=== PATIENT | male | born 1960 | race Caucasian/White ===

== ENCOUNTER 2017-07-06 07:29 | Inpatient (IN) | payer BC ==
[2017-07-04 12:15] VITALS: BMI 39.5
--- NOTE | 2017-07-06 08:43 | HP ---
HISTORY OF PRESENT ILLNESS Patient is a 57 y/o male with a past medical history of DM, cholelithasis, hyperlipidemia, hypertension, RAMYA (bipap at night), and ostearthritis. Patient presents for an elective right hip replacement with Dr Santos, 07/06/17. PCP: Amelie Recent travel:none Family History:non contributory to this admissin Social History: resides at home with Smoking: none Alcohol:social Drugs: none REVIEW OF SYSTEMS CONSTITUTIONAL: Absent: fever, chills, diaphoresis, generalized weakness, malaise, loss of appetite, weight change HEENT: Absent: rhinorrhea, nasal congestion, throat pain, throat swelling, difficulty swallowing, mouth swelling, ear pain, eye pain, visual changes CARDIOVASCULAR: Absent: chest pain, syncope, palpitations, irregular heart rate, lightheadedness , peripheral edema RESPIRATORY: Absent: cough, shortness of breath, dyspnea with exertion, orthopnea, wheezing, stridor, hemoptysis GASTROINTESTINAL: Absent: abdominal pain, abdominal distension, nausea, vomiting, diarrhea, constipation, melena, hematochezia GENITOURINARY: Absent: dysuria, frequency, urgency, hesitancy, hematuria, flank pain, genital pain MUSCULOSKELETAL: present: right hip pain Absent: myalgia, arthralgia, joint swelling, back pain, neck pain SKIN: Absent: rash, itching, pallor HEMATOLOGIC/IMMUNOLOGIC: Absent: easy bleeding, easy bruising, lymphadenopathy, frequent infections ENDOCRINE: Absent: unexplained weight gain, unexplained weight loss, heat intolerance, cold intolerance NEUROLOGIC: Absent: headache, focal weakness or paresthesias, dizziness, unsteady gait, seizure, mental status changes, bladder or bowel incontinence PSYCHIATRIC: Absent: anxiety, depression, suicidal or homicidal ideation, hallucinations. PHYSICAL EXAMINATION: GENERAL: Awake, alert, and fully oriented, in no acute distress. HEAD: Normal with no signs of trauma. EYES: Pupils equal, round and reactive to light, extraocular movements intact, sclera anicteric, conjunctiva clear. No lid lag. EARS, NOSE, THROAT: Ears normal, nares patent, oropharynx clear without exudates. Moist mucous membranes. NECK: Normal range of motion, supple without lymphadenopathy, JVD, or masses. LUNGS: Breath sounds equal, clear to auscultation bilaterally. No wheezes, and no crackles. No accessory muscle use. HEART: Regular rate and rhythm, normal S1 and S2 without murmur, rub or gallop. ABDOMEN: Soft, nontender, not distended, normoactive bowel sounds, no guarding, no rebound, no masses. No hepatomegaly or splenomegaly. MUSCULOSKELETAL: Normal range of motion at all joints. No bony deformities or tenderness. No CVA tenderness. UPPER EXTREMITIES: 2+ pulses, warm, well-perfused. No cyanosis. No clubbing. No peripheral edema. LOWER EXTREMITIES: 2+ pulses, warm, well-perfused. No calf tenderness. No peripheral edema. pain upon abduction and adduction of the right hip. NEUROLOGICAL: Cranial nerves II-XII intact. Normal speech. Normal gait. PSYCHIATRIC: Cooperative. Good eye contact. Appropriate mood and affect. SKIN: Warm, dry, normal turgor, no rashes or lesions noted, normal capillary refill. CBC,CMP POC Glucometer 101 UNITS (80-120) 07/06/17 08:19 ASSESSMENT/PLAN: F/E/N -npo pending or ppx - hold ac pending OR, mechanical AC only dispo: pt requires inpatient admission Problem List - Problem (1) Osteoarthritis of right hip Assessment/Plan: - pending OR today for elective right total hip replacement, Dr Santos Code(s): M16.11 - UNILATERAL PRIMARY OSTEOARTHRITIS, RIGHT HIP Qualifiers: Osteoarthritis type: primary Qualified Code(s): M16.11 - Unilateral primary osteoarthritis, right hip (2) Hypertension Assessment/Plan: -at goal, continue lisiniprol, strict b/p monitoring, caution hctz, strict monitoirng of creatine post operatively - blood pressure q4h Code(s): I10 - ESSENTIAL (PRIMARY) HYPERTENSION Qualifiers: Hypertension type: essential hypertension Qualified Code(s): I10 - Essential (primary) hypertension (3) Hyperlipidemia Assessment/Plan: - continue statin Code(s): E78.5 - HYPERLIPIDEMIA, UNSPECIFIED (4) Diabetes Assessment/Plan: - continue metfomrin and glimipride, strict monitoring of creatine Code(s): E11.9 - TYPE 2 DIABETES MELLITUS WITHOUT COMPLICATIONS Qualifiers: Diabetes mellitus type: type 2 Visit type - Case Type Case Type: Scheduled Admission - Emergency Emergency Visit: No - New patient This patient is new to me today: Yes Date on this admission: 07/06/17 - Critical Care Critical Care patient: No
[2017-07-06] MEDS ORDERED: EPINEPHrine/PF 1 MG/1 ML (1:1,000) AMPULE ONE (10:26)
[2017-07-06] MEDS ORDERED: LIDOCAINE 1% P/F 10 MG/ML VIAL ONE (10:26)
[2017-07-06] MEDS ORDERED: DESFLURANE GAS 240 ML BOTTLE IH ONE (10:26)
[2017-07-06] MEDS ORDERED: BUPIVACAINE HCL/PF 0.5% (5MG/ML) 10 ML VIAL ONE (10:26)
[2017-07-06] MEDS ORDERED: DEXAMETHASONE SOD PHOSPHATE/PF 10 MG/ML SDV ONE (10:26)
[2017-07-06] MEDS ORDERED: ROPIVACAINE HCL 0.5% 30ML VIAL ONE (10:26)
[2017-07-06] MEDS ORDERED: ONDANSETRON 4 MG/2 ML VIAL ONE (10:32)
[2017-07-06] MEDS ORDERED: ceFAZolin SODIUM 1 GM VIAL ONE (10:32)
[2017-07-06] MEDS ORDERED: ePHEDrine SULFATE 50 MG/1 ML AMPULE ONE (10:32)
[2017-07-06] MEDS ORDERED: LIDOCAINE HCL/PF 2% SDV 5ML VIAL ONE (10:32)
[2017-07-06] MEDS ORDERED: PHENYLEPHRINE HCL 10 MG/1 ML SINGLE DOSE VIAL ONE (10:32)
[2017-07-06] MEDS ORDERED: SUCCINYLCHOLINE CHLORIDE 200 MG/10 ML VIAL ONE (10:33)
[2017-07-06] MEDS ORDERED: PROPOFOL 20 ML ONE ×6 (10:33)
[2017-07-06] MEDS ORDERED: MIDAZOLAM HCL 2 MG/2 ML SINGLE DOSE VIAL ONE ×2 (10:33)
[2017-07-06] MEDS ORDERED: TRANEXAMIC ACID 1000 MG/10 ML VIAL ONE ×3 (10:36→14:48)
[2017-07-06] MEDS ORDERED: MAG HYDROX/AL HYDROX/SIMETH 30 ML UNIT-DOSE CUP PO PRN (14:32)
[2017-07-06] MEDS ORDERED: ONDANSETRON 4 MG/2 ML VIAL IVPUSH PRN ×2 (14:32→15:23)
--- NOTE | 2017-07-06 14:42 | OP ---
Operative Note - Note: Operative Date: 07/06/17 Pre-Operative Diagnosis: OA Right Hip Operation: Right Cementless THR [place] Findings: OA hip Implants: Securfit 127degrees Size7. [id number] +4 Ceramic. Cup 56mm Tritanium Cup. 28mm liner Surgeon: Jesus Santos Loans Officer: Arturo Santos Anesthesiologist/TREE WRAPPER: Rell Roche Anesthesia: Spinal, Epidural Estimated Blood Loss (mls): 300 Drains & Tubes with Location: Hemovac X 2 Operative Report Dictated: Yes
[2017-07-06] MEDS ORDERED: LACTATED RINGERS SOLUTION 1,000 ML IV SCH ×2 (14:45→15:30)
[2017-07-06] MEDS ORDERED: PROMETHAZINE HCL 25 MG/1 ML VIAL IVPUSH PRN (15:23)
[2017-07-06] MEDS ORDERED: oxyCODONE HCL 5 MG TABLET PO PRN (15:35)
[2017-07-06] MEDS ORDERED: ACETAMINOPHEN 1000 MG/100 ML VIAL (NON FORMULARY) IVPB ONE (15:35)
[2017-07-06] MEDS ORDERED: metFORMIN HCL 500 MG TABLET (FP) PO SCH (16:30)
[2017-07-06] MEDS: oxyCODONE HCL 5 MG TABLET PO PRN ×3 (17:21→23:25)
--- NOTE | 2017-07-06 19:04 | PN ---
Progress Note (short form) - Note Progress Note: 57M s/p R RICHARD POD #0. -Pain control. -DVT PPx: ASA, MOLLY's, SCD's. -Incentive spirometry. -PT/OT/Rehab, OOB. -WBAT RLE. -Care per medical hospitalist team. -f/u drain output: 1 x deep & 1 x superficial hemovac. -Will follow. Jesus Santos MD (Orthopaedic Surgery).
[2017-07-06] MEDS: CLINDAMYCIN 900 MG PREMIX IVPB 900 MG/50 ML BAG IVPB SCH (19:32)
[2017-07-06] MEDS: ASPIRIN 325 MG TABLET PO SCH (21:32)
[2017-07-06] MEDS: ACETAMINOPHEN 325 MG TABLET (FP) PO SCH (21:32)
[2017-07-06] MEDS: SENNOSIDES/DOCUSATE COMBO (SENNA PLUS) TABLET (UD) PO SCH (21:33)
[2017-07-06] MEDS ORDERED: ENOXAPARIN NA (PORCINE) 30 MG/0.3 ML DISP.SYRIN SQ SCH (22:00)
[2017-07-07] MEDS ORDERED: VANCOMYCIN 1,000 MG in DEXTROSE 5%-WATER - 250 ML IVPB ONE (01:00)
[2017-07-07] MEDS: CLINDAMYCIN 900 MG PREMIX IVPB 900 MG/50 ML BAG IVPB SCH ×3 (01:13→18:45)
[2017-07-07] MEDS: oxyCODONE HCL 5 MG TABLET PO PRN ×4 (02:58→16:10)
[2017-07-07] MEDS: ACETAMINOPHEN 325 MG TABLET (FP) PO SCH ×4 (03:37→21:28)
[2017-07-07] MEDS: GLIMEPIRIDE 2 MG TABLET (FP) PO SCH (06:13)
[2017-07-07 07:57] LABS: ANION GAP 5 (8-16); BLOOD UREA NITROGEN 14 mg/dl (7-18); CALCIUM 8.1 mg/dl (8.4-10.2); CHLORIDE 99 mmol/L (98-107); CO2 27 mmol/L (22-28); CREATININE 0.9 mg/dl (0.6-1.3); GLUCOSE,RANDOM 143 mg/dl (74-106); POTASSIUM 3.5 mmol/L (3.5-5.1); SODIUM 131 mmol/L (136-145)
[2017-07-07 08:04] LABS: HEMATOCRIT 35.7 % (35.4-49); HEMOGLOBIN 11.6 GM/dl (11.7-16.9); MCH 30.4 pg (25.7-33.7); MCHC 32.6 g/dl (32.0-35.9); MEAN CELL VOLUME 93.2 fl (80-96); MEAN PLT VOLUME 7.4 fl (7.5-11.1); PLATELET COUNT 197 K/MM3 (134-434); RBC 3.83 M/mm3 (4.00-5.60); RDW 13.9 % (11.9-15.9); WHITE BLOOD COUNT 9.4 K/mm3 (4.0-10.8)
--- NOTE | 2017-07-07 08:26 | OP ---
DATE OF OPERATION: 07/06/2017 SURGEON: Jesus Sanots MD COSURGEON: Arturo Santos MD PREOPERATIVE DIAGNOSIS: Osteoarthritis, right hip. POSTOPERATIVE DIAGNOSIS: Osteoarthritis, right hip. OPERATION PERFORMED: Right cemented total hip arthroplasty (Donna). ANESTHESIA: General. ANTIBIOTICS GIVEN: Vancomycin 1 g and 900 mg clindamycin. BLOOD LOSS: 350 mL. Extremely difficult case because of thickness, girth, and size of patient. DESCRIPTION OF PROCEDURE: Patient correctly identified, brought to the operating room. Right lower extremity was prepped, free draped in the routine manner with Betadine scrub solution, wiped off with alcohol, DuraPrep applied. Timeout was called. Imaging was available for intraoperative evaluation. The hip and knee flexed to 45 degrees, an incision was taken through the skin and subcutaneous fat, fascia, the hip abductor mechanism identified, a Charnley retractor placed in subfascial plane. An anterior biased direct lateral approach was utilized. The capsule was incised superolaterally and inferomedially. Radial incision was made in the capsule, enabled a difficult flexion, abduction, external rotation maneuver and dislocation of the head and neck appropriately. The head measured 56 mm. Hohmann retractors were placed around the neck, and the femoral neck cut was made in accordance with the principles of Charnley. An anterior, posterior, inferior retractor was placed, and a superolateral aspect acetabular retractor placed in order to give easy access to the acetabulum. This was deep and difficult because of the depth and the thickness of his tissues. The surrounding labrum as well as the pulvinar were excised. The reaming was to size 55, and a size 56 [place] Tritanium cup inserted, closed in 10 degrees anteverted. The 28-mm liner was inserted. Solid press-fit fixation was achieved. The hip was then adducted, externally rotated. The hip abductor mechanism was held out of harm's way with a Hohmann. Entry to the trochanter was with a rongeur and then a box attacher. Reaming was to the large lateralizer and 6-mm reamer. Broaching was for a size 7 stem with 127-degree Secur-Fit stem to be utilized. This was solidly seated into position after the appropriate broaching. The broaching enabled trialing on the table, and we opted for a high-offset 127-mm stem. Solid fixation was achieved on the table, and a +4 ceramic 28-mm head was utilized. The hip was reduced, placed through a full range of movement of flexion, adduction, internal rotation, as well as extension, external rotation without impingement on the trunnion or onto any of the acetabular component parts. The wounds were thoroughly lavaged. CLOSURE: Hip abductor mechanism with 1 Vicryl, fascia 1 Vicryl, subcutaneous in 2 layers with 1 Vicryl, and skin 3-0 Monocryl with Steri-Strips. This was a complex wound closure of 15 cm. No complications excepting for extremely difficult procedure. MD RANDEE Alcantar/[id number]
--- NOTE | 2017-07-07 08:43 | PN ---
Progress Note, Physician Chief Complaint: Pt pain controlled, ambulating and voiding. no anesthesia complications. - Current Medication List Current Medications: Active Medications Acetaminophen (Tylenol -) 650 mg PO Q6H [facility] Stop: 07/09/17 21:59 Last Admin: 07/07/17 03:37 Dose: 650 mg Al Hydroxide/Mg Hydroxide (Mylanta Oral Suspension -) 30 ml PO Q4H PRN PRN Reason: DYSPEPSIA Aspirin (Asa -) 325 mg PO BID [facility] Last Admin: 07/06/17 21:32 Dose: 325 mg Fentanyl (Sublimaze Injection -) 50 mcg IVPUSH [id number] PRN PRN Reason: PAIN-PACU ORDER X 4 DOSES ONLY Glimepiride (Amaryl -) 2 mg PO DAILY@0700 [facility] Last Admin: 07/07/17 06:13 Dose: 2 mg Hydrochlorothiazide (Hctz -) 12.5 mg PO DAILY [facility] Lactated Ringer's (Lactated Ringers Solution) 1,000 mls @ 125 mls/hr IV ASDIR [facility] Clindamycin Phosphate (Cleocin 900 Mg Premix Ivpb -) 900 mg in 50 mls @ 100 mls /hr IVPB Q8H-IV [facility] Stop: 07/07/17 18:59 Last Admin: 07/07/17 01:13 Dose: 100 mls/hr Lisinopril (Prinivil) 10 mg PO DAILY [facility] Magnesium Hydroxide (Milk Of Magnesia -) 30 ml PO PRN PRN PRN Reason: CONSTIPATION Ondansetron HCl (Zofran Injection) 4 mg IVPUSH Q6H PRN PRN Reason: NAUSEA Oxycodone HCl (Roxicodone -) 10 mg PO Q3H PRN PRN Reason: PAIN LEVEL 6-10 Last Admin: 07/07/17 06:13 Dose: 10 mg Oxycodone HCl (Roxicodone -) 5 mg PO Q3H PRN PRN Reason: PAIN LEVEL 1-5 Pantoprazole Sodium (Protonix -) 40 mg PO DAILY [facility] Senna/Docusate Sodium (Pericolace -) 2 tablet PO BID [facility] Last Admin: 07/06/17 21:33 Dose: 2 tablet - Objective Vital Signs: Vital Signs Temperature 98.0 F 07/07/17 05:46 Pulse Rate 69 07/07/17 05:46 Respiratory Rate 18 07/07/17 05:46 Blood Pressure 136/76 07/07/17 05:46 O2 Sat by Pulse Oximetry (%) 98 07/07/17 05:46 Constitutional: Yes: Well Nourished, No Distress, Calm Musculoskeletal: Yes: WNL Neurological: Yes: WNL, Alert, Oriented ...Motor Strength: WNL Labs: CBC, BMP 07/07/17 07:15 07/07/17 07:15 Assessment/Plan POD#1 s/p R hip arthroplasty under spinal with paravertebral block. Doing well. D/C from anesthesia care.
[2017-07-07] MEDS: HYDROCHLOROTHIAZIDE 12.5 MG CAPSULE (FP) PO SCH (09:32)
[2017-07-07] MEDS: LISINOPRIL 10 MG TABLET (FP) PO SCH (09:32)
[2017-07-07] MEDS: PANTOPRAZOLE 40 MG TABLET (FP) PO SCH (09:32)
[2017-07-07] MEDS: ASPIRIN 325 MG TABLET PO SCH ×2 (09:33→21:28)
[2017-07-07] MEDS: SENNOSIDES/DOCUSATE COMBO (SENNA PLUS) TABLET (UD) PO SCH ×2 (09:33→21:33)
[2017-07-07] MEDS ORDERED: PATIENT'S OWN MEDICATION (NON-FORMULARY) (Lisinopril/Hydrochlorothiazide [Lisinopril-Hctz PO SCH (10:00)
--- NOTE | 2017-07-07 13:24 | PN ---
Physical Exam: SUBJECTIVE: Patient seen and examined, patient sitting in bedside chair, reports feeling well, reports pain to the right lower extremity upon movement, patient denies any paresthesia to the extremity. OBJECTIVE: Patient is a 57 y/o male with a past medical history of DM, cholelithasis, hyperlipidemia, hypertension, RAMYA (bipap at night), and ostearthritis. Patient presents for an elective right hip replacement with Dr Santos, 07/06/17. Vital Signs Temperature 98.0 F 07/07/17 05:46 Pulse Rate 69 07/07/17 05:46 Respiratory Rate 18 07/07/17 05:46 Blood Pressure 136/76 07/07/17 05:46 O2 Sat by Pulse Oximetry (%) 98 07/07/17 05:46 Intake & Output 07/04/17 07/05/17 07/06/17 07/07/17 23:59 23:59 23:59 23:59 Intake Total 2000 Output Total 1585 40 Balance 415 -40 Weight 117.934 kg GENERAL: The patient is awake, alert, and fully oriented, in no acute distress. HEAD: Normal with no signs of trauma. EYES: PERRL, extraocular movements intact, sclera anicteric, conjunctiva clear. No ptosis. ENT: Ears normal, nares patent, oropharynx clear without exudates, moist mucous membranes. NECK: Trachea midline, full range of motion, supple. LUNGS: Breath sounds equal, clear to auscultation bilaterally, no wheezes, no crackles, no accessory muscle use. HEART: Regular rate and rhythm, S1, S2 without murmur, rub or gallop. ABDOMEN: Soft, nontender, nondistended, normoactive bowel sounds, no guarding, no rebound, no hepatosplenomegaly, no masses. EXTREMITIES: 2+ pulses, warm, well-perfused, no edema. RIGHT LOWER EXTREMITY: aguacel dressing CDI, less than 3 second capillary refill , 2 hemovac noted NEUROLOGICAL: Cranial nerves II through XII grossly intact. Normal speech, gait not observed. PSYCH: Normal mood, normal affect. SKIN: Warm, dry, normal turgor, no rashes or lesions noted Laboratory Results - last 24 hr 07/06/17 07/07/17 07/07/17 15:14 06:10 07:15 WBC 9.4 RBC 3.83 L Hgb 11.6 L Hct 35.7 MCV 93.2 MCH 30.4 MCHC 32.6 RDW 13.9 Plt Count 197 MPV 7.4 L Sodium Potassium Chloride Carbon Dioxide Anion Gap BUN Creatinine POC Glucometer 83 158 Random Glucose Calcium 07/07/17 07:15 WBC RBC Hgb Hct MCV MCH MCHC RDW Plt Count MPV Sodium 131 L Potassium 3.5 Chloride 99 Carbon Dioxide 27 Anion Gap 5 L BUN 14 Creatinine 0.9 POC Glucometer Random Glucose 143 H Calcium 8.1 L Active Medications Generic Name Dose Route Start Last Admin Trade Name Freq PRN Reason Stop Dose Admin Acetaminophen 650 mg 07/06/17 22:00 07/07/17 09:22 Tylenol - PO 07/09/17 21:59 650 mg Q6H [facility] Administration Al Hydroxide/Mg Hydroxide 30 ml 07/06/17 14:32 Mylanta Oral Suspension - PO Q4H PRN DYSPEPSIA Aspirin 325 mg 07/06/17 22:00 07/07/17 09:33 Asa - PO 325 mg BID [facility] Administration Fentanyl 50 mcg 07/06/17 15:23 Sublimaze Injection - IVPUSH [id number] PRN PAIN-PACU ORDER X 4 DOSES ONLY Glimepiride 2 mg 07/07/17 07:00 07/07/17 06:13 Amaryl - PO 2 mg DAILY@0700 [facility] Administration Hydrochlorothiazide 12.5 mg 07/07/17 10:00 07/07/17 09:32 Hctz - PO 12.5 mg DAILY [facility] Administration Lactated Ringer's 1,000 mls @ 125 mls/hr 07/06/17 15:30 Lactated Ringers Solution IV ASDIR [facility] Clindamycin Phosphate 900 mg in 50 mls @ 100 mls/hr 07/06/17 19:00 07/07/17 09:35 Cleocin 900 Mg Premix Ivpb - IVPB 07/07/17 18:59 100 mls/hr Q8H-IV [facility] Administration Lisinopril 10 mg 07/07/17 10:00 07/07/17 09:32 Prinivil PO 10 mg DAILY [facility] Administration Magnesium Hydroxide 30 ml 07/06/17 14:32 Milk Of Magnesia - PO PRN PRN CONSTIPATION Ondansetron HCl 4 mg 07/06/17 14:32 Zofran Injection IVPUSH Q6H PRN NAUSEA Oxycodone HCl 10 mg 07/06/17 15:35 07/07/17 09:22 Roxicodone - PO 10 mg Q3H PRN Administration PAIN LEVEL 6-10 Oxycodone HCl 5 mg 07/06/17 15:35 Roxicodone - PO Q3H PRN PAIN LEVEL 1-5 Pantoprazole Sodium 40 mg 07/07/17 10:00 07/07/17 09:32 Protonix - PO 40 mg DAILY [facility] Administration Senna/Docusate Sodium 2 tablet 07/06/17 22:00 07/07/17 09:33 Pericolace - PO 2 tablet BID [facility] Administration ASSESSMENT/PLAN: 1) MS s/p right hip replacement - physical therapy - incentive spirometer - close monitoring of hgb 2) cardiovascular hypertension -at goal, continue lisiniprol, strict b/p monitoring, caution hctz, strict monitoirng of creatine post operatively - blood pressure q4h hyperlipidemia - continue statin 3) endo DM - continue metfomrin and glimipride, strict monitoring of creatine F/E/N - diabetic diet ppx - asa - PT - protonix dispo: pt requires inpatient admission Problem List - Problems (1) Osteoarthritis of right hip Code(s): M16.11 - UNILATERAL PRIMARY OSTEOARTHRITIS, RIGHT HIP Qualifiers: Osteoarthritis type: primary Qualified Code(s): M16.11 - Unilateral primary osteoarthritis, right hip (2) Hypertension Code(s): I10 - ESSENTIAL (PRIMARY) HYPERTENSION Qualifiers: Hypertension type: essential hypertension Qualified Code(s): I10 - Essential (primary) hypertension (3) Hyperlipidemia Code(s): E78.5 - HYPERLIPIDEMIA, UNSPECIFIED (4) Diabetes Code(s): E11.9 - TYPE 2 DIABETES MELLITUS WITHOUT COMPLICATIONS Qualifiers: Diabetes mellitus type: type 2 Visit type - Case Type Case Type: Scheduled Admission - Emergency Emergency Visit: No - New patient This patient is new to me today: No - Critical Care Critical Care patient: No
[2017-07-07] MEDS: MAGNESIUM HYDROX 2400MG/30ML ORAL SUSPENSION 30 ML CUP PO PRN ×2 (15:18→19:10)
[2017-07-07] MEDS ORDERED: SODIUM PHOSPHATE/NA BIPHOS 133 ML ENEMA PR ONE (22:00)
[2017-07-08] MEDS: ACETAMINOPHEN 325 MG TABLET (FP) PO SCH ×3 (04:32→15:45)
[2017-07-08] MEDS: GLIMEPIRIDE 2 MG TABLET (FP) PO SCH (06:16)
[2017-07-08 08:50] LABS: HEMATOCRIT 35.4 % (35.4-49); HEMOGLOBIN 12.4 GM/dl (11.7-16.9); MCH 32.8 pg (25.7-33.7); MCHC 35.1 g/dl (32.0-35.9); MEAN CELL VOLUME 93.6 fl (80-96); MEAN PLT VOLUME 7.5 fl (7.5-11.1); PLATELET COUNT 178 K/MM3 (134-434); RBC 3.78 M/mm3 (4.00-5.60); RDW 13.8 % (11.9-15.9); WHITE BLOOD COUNT 9.4 K/mm3 (4.0-10.8)
[2017-07-08] MEDS: ASPIRIN 325 MG TABLET PO SCH (09:18)
[2017-07-08] MEDS: LISINOPRIL 10 MG TABLET (FP) PO SCH (09:19)
[2017-07-08] MEDS: HYDROCHLOROTHIAZIDE 12.5 MG CAPSULE (FP) PO SCH (09:19)
[2017-07-08] MEDS: PANTOPRAZOLE 40 MG TABLET (FP) PO SCH (09:19)
[2017-07-08] MEDS: SENNOSIDES/DOCUSATE COMBO (SENNA PLUS) TABLET (UD) PO SCH (09:19)
[2017-07-08] MEDS: oxyCODONE HCL 5 MG TABLET PO PRN (09:20)
--- NOTE | 2017-07-08 11:15 | PN ---
Progress Note (short form) - Note Progress Note: 57M doing well s/p R RICHARD POD #2. Pain well controlled. No acute events overnight. Pt. denies chest pain/shortness of breath/nausea/vomiting/chills/sweats. (+) Voiding; (+) Flatus; (+) BM. All labs and vitals reviewed. PE: AAO x 3, NAD. Right Hip: Dressing C/D/I. (+) Drain site drainage. NV status at baseline. 57M doing well s/p R RICHARD POD #2. -Pain control. -DVT PPx: ASA 325mg PO BID x 6 weeks; SCD's, MOLLY's. -Incentive spirometry. -PT/OT/Rehab, OOB. -WBAT RLE. -Care per medical hospitalist team. -Discharge planning.
--- NOTE | 2017-07-08 14:00 | DS ---
Physical Exam: SUBJECTIVE: Patient seen and examined, reports feeling well, denies any chest pain or shortness of breath, reports minimal pain to the right lower extremity upon movement. OBJECTIVE:Patient is a 57 y/o male with a past medical history of DM, cholelithasis, hyperlipidemia, hypertension, RAMYA (bipap at night), and ostearthritis. Patient presents for an elective right hip replacement with Dr Santos, 07/06/17. PCP: Amelie Vital Signs Period Temp Pulse Resp BP Sys/Townsend Pulse Ox Last 24 Hr 98.6 F-100.7 F 72-74 -18 121-121/60-68 94-97 PHYSICAL EXAM GENERAL: The patient is awake, alert, and fully oriented, in no acute distress. HEAD: Normal with no signs of trauma. EYES: PERRL, extraocular movements intact, sclera anicteric, conjunctiva clear. ENT: Ears normal, nares patent, oropharynx clear without exudates, moist mucous membranes. NECK: Trachea midline, full range of motion, supple. LUNGS: Breath sounds equal, clear to auscultation bilaterally, no wheezes, no crackles, no accessory muscle use. HEART: Regular rate and rhythm, S1, S2 without murmur, rub or gallop. ABDOMEN: Soft, nontender, nondistended, normoactive bowel sounds, no guarding, no rebound, no hepatosplenomegaly, no masses. EXTREMITIES: 2+ pulses, warm, well-perfused, no edema. RIGHT LOWER EXTREMITY: dressing CDI, less than 3 second capillary refill, +3 pedal pulse, 2 hemovacs noted, both hemovacs removed, minimal drainage NEUROLOGICAL: Cranial nerves II through XII grossly intact. Normal speech, gait not observed. PSYCH: Normal mood, normal affect. SKIN: Warm, dry, normal turgor, no rashes or lesions noted. LABS Laboratory Results - last 24 hr 07/08/17 07/08/17 07/08/17 06:08 07:00 11:35 WBC 9.4 RBC 3.78 L Hgb 12.4 Hct 35.4 MCV 93.6 MCH 32.8 MCHC 35.1 RDW 13.8 Plt Count 178 MPV 7.5 POC Glucometer 121 114 HOSPITAL COURSE: The patient was admitted to the Med-Surg Unit after an elective repair right total hip replacement, Dr Santos. On post operative day 1, the patient ambulated the hallways with assistance. Narcotic and non-narcotic pain management control was achieved with an oral and IV approach. POD #2, the surgical drain was removed fully intact and without incident. Kathi-operative IV ABX were administered. DVT prophylaxis was achieved with SCDs and early ambulation. The patient ambulated with Physical Therapy and patient will recieve physical therapy at home upon discharge. Narcotic scripts and or muscle relaxants were checked with [place] TRANSFER AGENT prior to escibe. The discharge instructions and an oral pain management plan were reviewed with the patient. All questions answered. Above plan discussed with Dr. Santos and agreed Date of Admission:18 Date of Discharge: 18 Minutes to complete discharge: 45 Discharge Summary Reason For Visit: RIGHT HIP ARTHROSCOPY Current Active Problems Diabetes (Acute) Hyperlipidemia (Acute) Hypertension (Acute) Osteoarthritis of right hip (Acute) - Instructions - Home Medications Comprehensive Discharge Medication List: Ambulatory Orders Glimepiride 2 mg PO DAILY 07/04/ Lisinopril/Hydrochlorothiazide [Lisinopril-Hctz 10-12.5 mg Tab] 1 each PO DAILY 12/18 Metformin HCl [Glucophage] 1,000 mg PO BID 07/04/18 Simvastatin 20 mg PO HS 07/04/18 Hydrocodone/Acetaminophen [Hydrocodone-Acetamin 7.5-300] 1 each PO TID PRN 07/06 /18 Problem List - Problems (1) Osteoarthritis of right hip Code(s): M16.11 - UNILATERAL PRIMARY OSTEOARTHRITIS, RIGHT HIP Qualifiers: Osteoarthritis type: primary Qualified Code(s): M16.11 - Unilateral primary osteoarthritis, right hip (2) Hypertension Code(s): I10 - ESSENTIAL (PRIMARY) HYPERTENSION Qualifiers: Hypertension type: essential hypertension Qualified Code(s): I10 - Essential (primary) hypertension (3) Hyperlipidemia Code(s): E78.5 - HYPERLIPIDEMIA, UNSPECIFIED (4) Diabetes Code(s): E11.9 - TYPE 2 DIABETES MELLITUS WITHOUT COMPLICATIONS Qualifiers: Diabetes mellitus type: type 2 This patient is new to me today: No Emergency Visit: No Critical Care patient: No - Discharge Referral Referred to [facility] Med P.C.: No
--- NOTE | 2017-07-08 14:10 | PN ---
Progress Note (short form) - Note Progress Note: Anesthesiology Pain-Service S: POD#2 s/p revision right hip arthroplasty. O: Pt. participating in PT with reasonable progress. Feels well. Pain present but manageable. VSS. A: 57 y.o. male s/p right hip arthroplasty revision with no apparent anesthesia- related issues. P: Continue post-op management as per primary team.
[2017-07-08 14:19] VITALS: BP 102/53; PULSE 78; TEMP 99
--- NOTE | 2017-07-12 16:32 | PATH ---
Surgical Pathology Report Patient Name: SMITA MAGALLON Med. Rec. #: [id number] /Age/Gender: 1960 (Age: 57) / M Account: [id number] Location: [facility] MED-SURG Taken: 07/06/2017 Received: 07/06/2017 Reported: 07/12/2017 Physicians: Jesus Santos M.D. Specimen(s) Received RIGHT FEMORAL HEAD Clinical History Right hip osteoarthritis Final Diagnosis FEMORAL HEAD, RIGHT, TOTAL HIP REPLACEMENT: DEGENERATIVE JOINT DISEASE. Electronically Signed Giuliana Gentile M.D. Gross Description Received in formalin, labeled "right femoral head," is a 5.0 x 5.0 x 4.5 cm. femoral head with a 1.2 cm in length portion of femoral neck attached. The margin of resection is smooth. No areas of eburnation are identified. The articular surface is fall-yellow and diffusely pitted and granular. The underlying trabecular bone is yellow and hard. A hobbies and crafts sales representative section is submitted in one cassette, following decalcification. 07/08/2017 [facility]07/08/2017
== END 2017-07-08 18:35 | disposition home health service (06) | DRG 470 ==
LOC: FM/S 07:29
PROVIDERS: ADMIT Orthopaedic Surgery Orthopaedic Surgery of the Spine; ATTEND Orthopaedic Surgery Orthopaedic Surgery of the Spine
PROC: 0SR90JA Replacement of Right Hip Joint with Synthetic Substitute, Uncemented, Open Approach (ICD-10-PCS; principal; 2017-07-06 12:28)
DX: M16.11 Unilateral primary osteoarthritis, right hip (principal); E78.5 Hyperlipidemia, unspecified; E11.9 Type 2 diabetes mellitus without complications; I10 Essential (primary) hypertension; G47.33 Obstructive sleep apnea (adult) (pediatric); K80.80 Other cholelithiasis without obstruction
CPT/HCPCS: 36415; 73502-TC-RT; 80048; 82962; 85027; 88304-TC; 88311-TC; 94010; 97116-GP; 97162-GP